=== PATIENT | female | born 1970 | race Caucasian/White ===

== ENCOUNTER 2023-01-13 18:39 | Emergency (ER) | payer OTHER ==
[2023-01-13 19:23] VITALS: BP 146/92; PULSE 76; RESP 18; TEMP 98.6; BMI 40.6
[2023-01-13 19:52] LABS: HEMATOCRIT 41.5 % (32.4-45.2); HEMOGLOBIN 13.9 G/dL (10.7-15.3); MCHC 33.4 g/dl (32.0-36.0); MEAN PLT VOLUME 8.5 fl (7.5-11.1); PLATELET COUNT 224.2 10^3/uL (134-434); RBC 4.94 10^6/uL (3.60-5.2); RDW 14.7 % (11.6-15.6); WHITE BLOOD COUNT 12.6 10^3/uL (4.0-10.8)
[2023-01-13 19:58] LABS: HCG,QUALITATIVE URINE Negative
[2023-01-13 20:06] LABS: ALBUMIN 3.9 g/dl (3.4-5.0); BILIRUBIN,TOTAL 0.6 mg/dl (0.2-1); CALCIUM 9.1 mg/dl (8.5-10); CREATININE 0.6 mg/dl (0.55-1.3); TOT PROT 7.7 g/dl (6.4-8.2)
[2023-01-13 20:22] LABS: EPITHELIAL CELLS FEW /hpf
[2023-01-13 20:34] LABS: PLATELET ESTIMATE ADEQUATE
[2023-01-13] MEDS ORDERED: CEFTRIAXONE 500 MG in DEXTROSE 5%-WATER - 50 ML IVPB ONE (21:40)
== END 2023-01-13 22:08 | disposition home or self-care (01) ==
LOC: FER 18:39
DX: K57.92 Diverticulitis of intestine, part unspecified, without perforation or abscess without bleeding (principal)
CPT/HCPCS: 36415; 74176-TC; 80053; 81003; 81015; 84703; 85025; 87086; 99284-25